=== PATIENT | female | born 1990 ===

== ENCOUNTER 2021-01-26 14:30 | Outpatient (RCR) | payer MEDICAID | END 2021-02-27 08:16 | disposition home or self-care (01) | LOC: MKS.ESL.PT 14:30 | DX: E11.9 Type 2 diabetes mellitus without complications (principal) ==

== ENCOUNTER 2021-09-08 14:22 | Outpatient (RCR) | payer MEDICAID | END 2021-09-19 | disposition home or self-care (01) | LOC: MKS.ESL.PT | DX: M54.50 Low back pain, unspecified (principal) ==

== ENCOUNTER 2021-10-09 10:30 | Outpatient (RCR) | payer MEDICAID | END 2021-10-19 | disposition still patient (30) | LOC: MKS.ESL.PT | DX: M54.50 Low back pain, unspecified (principal) ==

== ENCOUNTER 2021-11-06 08:00 | Outpatient (RCR) | payer MEDICAID | END 2021-11-19 | disposition home or self-care (01) | LOC: MKS.ESL.PT | DX: M54.50 Low back pain, unspecified (principal) ==